=== PATIENT | female | born 1960 | race Caucasian/White ===

== ENCOUNTER 2017-06-13 13:23 | Outpatient (CLI) | payer OTHER ==
--- NOTE | 2017-06-13 17:51 | RAD ---
RIGHT FOOT THREE VIEWS 06/13/17 No acute fracture was appreciated. My understanding is that he focus of pain is the toes, and they a ppeared intact. The third and fourth metatarsal heads are rotated slightly laterally and there is a little sclerosis and irregularity at their margins. The appearance is more that of a prior injury th an a recent one. This should be correlated with the exact site of pain. My understanding is that the toes were the primary concern in this patient. IMPRESSION: Probably no acute findings. Findings in the third and fourth metatarsal heads are thought to be more likely old than new, however, if this correlates with the site of pain or if there is continued esther n, then a followup study in 7 to 10 days to take a second look at this area should occur. POS: HOME
== END 2017-06-13 13:24 | disposition home or self-care (01) ==
LOC: BURRAD 13:23
PROVIDERS: ATTEND Nurse Practitioner
DX: S93.601A Unspecified sprain of right foot, initial encounter (principal); S90.121A Contusion of right lesser toe(s) without damage to nail, initial encounter